=== PATIENT | female | born 1970 | race Hispanic/Latino ===

== ENCOUNTER 2017-01-20 10:36 | Observation (INO) | payer OTHER ==
[2017-01-20 10:39] VITALS: BMI 19.5
--- NOTE | 2017-01-20 12:02 | RAD ---
HISTORY: palpiations COMPARISON: No prior. TECHNIQUE: Chest PA and lateral FINDINGS: LUNGS: Pulmonary hyperinflation suggestive of COPD/ emphysema. Please correlate. No infiltrate. PLEURA: No significant pleural effusion identified. No pneumothorax apparent. CARDIOVASCULAR: Narrow cardiac silhouette, may be related to pulmonary hyperinflation. OSSEOUS STRUCTURES: No significant abnormalities. VISUALIZED UPPER ABDOMEN: Normal. OTHER FINDINGS: None. IMPRESSION: Pulmonary hyperinflation suggestive of emphysema. No acute infiltrate.
[2017-01-20 13:13] LABS: BASO % 1.2 % (0.0-2.0); EOS % 0.3 % (0.0-4.0); HEMATOCRIT 42.1 % (34.0-47.0); LYMPH # 1.4 K/uL (1.0-4.3); LYMPH % 33.9 % (20.0-40.0); MEAN CELL VOLUME 88.2 fl (81.0-99.0); MEAN CORPUSCULAR HEMOGLOBIN 29.1 pg (27.0-31.0); MEAN PLATELET VOLUME 9.5 fl (7.2-11.7); MONO # 0.3 K/uL (0.0-0.8); MONO % 8.6 % (0.0-10.0); NEUT # 2.2 K/uL (1.8-7.0); NRBC % 0.2 % (0.0-0.0); RED CELL DISTRIBUTION WIDTH 14.3 % (11.5-14.5)
[2017-01-20 13:21] LABS: ALB/GLOB RATIO 1.7 (1.0-2.1); ALKALINE PHOSPHATASE 75 U/L (38-126); ALT/SGPT 24 U/L (9-52); AST/SGOT 30 U/L (14-36); BLOOD UREA NITROGEN 12 mg/dl (7-17); CALCIUM 9.1 mg/dL (8.4-10.2); CARBON DIOXIDE 24 mmol/L (22-30); CHLORIDE 108 mmol/L (98-107); GFR AFRICAN-AMERICAN > 60; GLUCOSE,RANDOM 84 mg/dL (65-105); POTASSIUM 4.2 MMOL/L (3.6-5.0); SODIUM 142 mmol/l (132-148); TOTAL PROTEIN 7.3 G/DL (6.3-8.2)
[2017-01-20] MEDS ORDERED: Albuterol 0.083% Inhal Sol (2.5 mg/3 mL) UD INH ONE (13:48)
[2017-01-20] MEDS ORDERED: Albuterol 0.083% Inhal Sol (2.5 mg/3 mL) UD ONE (14:04)
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
[2017-01-20 17:35] LABS: T4 8.63 ug/dl (5.5-11.0)
--- NOTE | 2017-01-20 17:42 | CARD ---
APPROVED REPORT EKG Measurement Heart [id number] ID [id number] <Conclusion> Normal sinus rhythm with sinus arrhythmia Nonspecific ST abnormality Abnormal ECG
[2017-01-20 17:49] LABS: THYROID STIMULATING HORMONE 1.25 mIU/ML (0.46-4.68)
[2017-01-21 05:18] VITALS: TEMP 98.1; O2SAT 99
--- NOTE | 2017-01-21 08:00 | CP.PCM.CON ---
History of Present Illness - History of Present Illness History of Present Illness: 46 y/o w/f admitted with palpitations She has had this for 2 days fells like a rapid heart beat Has had palpitations x years occur daily lasts seconds EP studies 2012 showed RV Pvc's not sustainable 12/23/16 Echo: normal good LV function EF: 65 - 70% PMH: Anxiety Meds: Xanax Klonipin Troponin: neg EKG: normal Past Patient History - Past Medical History & Family History Past Medical History?: Yes - Past Social History Smoking Status: Former Smoker - CARDIAC Hx Cardiac Disorders: Yes Hx Cardia Arrhythmia: Yes - MUSCULOSKELETAL/RHEUMATOLOGICAL Hx Falls: No - PSYCHIATRIC Hx Anxiety: Yes Hx Substance Use: No - SURGICAL HISTORY Hx Cardiac Catheterization: Yes (4 years ago) Other/Comment: facial reconstructive surgery - ANESTHESIA Hx Anesthesia: Yes Hx Anesthesia Reactions: No Meds Home Medications: Home Medication List Medication Instructions Recorded Confirmed Type Escitalopram [Lexapro] 10 mg PO DAILY #30 tab 01/21/17 Rx Metoprolol Tartrate [Lopressor] 12.5 mg PO Q12 #30 tab 01/21/17 Rx Allergies/Adverse Reactions: Allergies Allergy/AdvReac Type Severity Reaction Status Date / Time clindamycin Allergy Mild RASH Verified 01/20/17 10:48 - Medications Medications: Current Medications Acetaminophen (Tylenol 325mg Tab) 650 mg PO Q6 PRN PRN Reason: Headache Alprazolam (Xanax) 0.5 mg PO BID SUMI Enoxaparin Sodium (Lovenox) 40 mg SC DAILY SUMI PRN Reason: Protocol Home Med (Triazolam [Triazolam]) 0.5 mg PO HS SUMI Physical Exam - Constitutional Appears: Well - Head Exam Head Exam: NORMAL INSPECTION - Eye Exam Eye Exam: Normal appearance Pupil Exam: NORMAL ACCOMODATION - ENT Exam ENT Exam: Normal Exam - Neck Exam Neck exam: Positive for: Full Rom - Respiratory Exam Respiratory Exam: Clear to Auscultation Bilateral, NORMAL BREATHING PATTERN - Cardiovascular Exam Cardiovascular Exam: REGULAR RHYTHM - GI/Abdominal Exam GI & Abdominal Exam: Normal Bowel Sounds Results - Vital Signs Recent Vital Signs: Last Vital Signs Temp 98.1 F 01/21/17 05:17 Pulse 82 01/21/17 05:17 Resp 20 01/21/17 05:17 BP 102/68 01/21/17 05:17 Pulse Ox 99 01/21/17 05:17 - Labs Result Diagrams: 01/20/17 13:00 01/20/17 13:00 Labs: Laboratory Results - last 24 hr 01/20/17 01/20/17 01/21/17 16:50 22:27 06:41 Troponin I < 0.0120 < 0.0120 Thyroxine (T4) 8.63 TSH 3rd Generation 1.25 Assessment & Plan (1) Palpitations Assessment and Plan: Spoke with the patient at length explaining her palpitations Gave her the results of her EKG's / Lab / Echo She can be discharged to f/u with me in 1 month I have given her a Rx for Metoprolol succinate 25mg Daily Status: Acute
[2017-01-21 08:14] VITALS: BP 102/62; PULSE 85; RESP 18
[2017-01-21] MEDS ORDERED: Enoxaparin 40 mg Syringe SC SCH (09:00)
[2017-01-21 10:47] LABS: THYROID STIMULATING HORMONE 3.39 mIU/ML (0.46-4.68)
--- NOTE | 2017-01-21 12:49 | CP.PCM.HP ---
History of Present Illness - History of Present Illness History of Present Illness: 46 year old female with a history of anxiety presented to ED with 2 day history of palpitations/sensation of skipped beats that was worsening. Patient states occasionally felt these symptoms though would resolve. Patient has been seen by Dr. Resendiz (Head Teller) in the past where EKG/Echo have been done but never a holter monitor. Patient states she would not be surprised if this was the result of anxiety. Patient takes 0.5mg Xanax BID (though prescribed for qid) . Patient never been on SSRI in the past. Patient was seen and examined with attending. Patient states symptoms have now resolved. No chest pain, sob, abdominal pain, fever, chills, recent travel, leg pain, or change in medications. No other complaints at this time. Present on Admission - Present on Admission Any Indicators Present on Admission: No Review of Systems - Review of Systems All systems: reviewed and no additional remarkable complaints except (mentioned in HPI) Past Patient History - Past Medical History & Family History Past Medical History?: Yes - Past Social History Smoking Status: Former Smoker - CARDIAC Hx Cardiac Disorders: Yes Hx Cardia Arrhythmia: Yes - MUSCULOSKELETAL/RHEUMATOLOGICAL Hx Falls: No - PSYCHIATRIC Hx Anxiety: Yes Hx Substance Use: No - SURGICAL HISTORY Hx Cardiac Catheterization: Yes (4 years ago) Other/Comment: facial reconstructive surgery - ANESTHESIA Hx Anesthesia: Yes Hx Anesthesia Reactions: No Meds Home Medications: Home Medication List Medication Instructions Recorded Confirmed Type Escitalopram [Lexapro] 10 mg PO DAILY #30 tab 01/21/17 Rx Metoprolol Tartrate [Lopressor] 12.5 mg PO Q12 #30 tab 01/21/17 Rx Allergies/Adverse Reactions: Allergies Allergy/AdvReac Type Severity Reaction Status Date / Time clindamycin Allergy Mild RASH Verified 01/20/17 10:48 Physical Exam - Constitutional Appears: Well, Non-toxic, No Acute Distress - Head Exam Head Exam: ATRAUMATIC, NORMAL INSPECTION, NORMOCEPHALIC - Eye Exam Eye Exam: EOMI, Normal appearance, PERRL - Neck Exam Neck exam: Positive for: Normal Inspection - Respiratory Exam Respiratory Exam: Clear to Auscultation Bilateral, NORMAL BREATHING PATTERN - Cardiovascular Exam Cardiovascular Exam: REGULAR RHYTHM, RRR, +S1, +S2. absent: Systolic Murmur - GI/Abdominal Exam GI & Abdominal Exam: Normal Bowel Sounds, Soft. absent: Tenderness - Extremities Exam Extremities exam: Positive for: normal inspection - Back Exam Back exam: NORMAL INSPECTION - Neurological Exam Neurological exam: Alert, Oriented x3 - Psychiatric Exam Psychiatric exam: Normal Affect, Normal Mood - Skin Skin Exam: Dry, Intact, Normal Color, Warm Results - Vital Signs Recent Vital Signs: Last Vital Signs Temp 98.1 F 01/21/17 08:00 Pulse 85 01/21/17 11:11 Resp 18 01/21/17 08:00 BP 102/62 01/21/17 11:11 Pulse Ox 99 01/21/17 08:00 - Labs Result Diagrams: 01/20/17 13:00 01/20/17 13:00 Labs: Laboratory Results - last 24 hr 01/20/17 01/20/17 01/21/17 16:50 22:27 06:41 Troponin I < 0.0120 < 0.0120 Thyroxine (T4) 8.63 TSH 3rd Generation 1.25 3.39 Assessment & Plan (1) Palpitations Assessment and Plan: No chest pain/palpitations at this time. EKG normal Monitored on telemetry Troponin x 3 negative Possibly 2ndary to anxiety Cardiology consulted, appreciate recommendations. Status: Acute (2) Anxiety Assessment and Plan: Encouraged tapering of Xanax and starting SSRI for more maintenance therapy. Counseled on the r/a/b of SSRI including time for treatment response, increased suicidal risk in first weeks, and the need to taper off medications and not to abruptly stop. Patient verbalized understanding and would like to start treatment at this time. ED precautions discussed. Patient refused to be seen by psychiatrist Status: Acute
[2017-01-21] MEDS ORDERED: TRIAZOLAM 0.5 MG PO SCH (22:00)
--- NOTE | 2017-01-23 09:25 | CARD ---
APPROVED REPORT EKG Measurement Heart [id number] <Conclusion> Sinus tachycardia Possible Left atrial enlargement Nonspecific ST abnormality Abnormal ECG
== END 2017-01-21 11:55 | disposition home or self-care (01) ==
LOC: H.ER 10:36 → H.ERHOLD 16:26 → H.TEL 19:05
PROVIDERS: ADMIT Internal Medicine; ATTEND Internal Medicine
DX: R00.2 Palpitations (principal); F41.9 Anxiety disorder, unspecified; I11.0 Hypertensive heart disease with heart failure; I50.9 Heart failure, unspecified; I49.3 Ventricular premature depolarization; Z79.899 Other long term (current) drug therapy; Z87.891 Personal history of nicotine dependence; Z88.1 Allergy status to other antibiotic agents; J44.9 Chronic obstructive pulmonary disease, unspecified

== ENCOUNTER 2018-07-06 17:26 | Emergency (ER) | payer BC, OTHER ==
[2018-07-06 17:26] VITALS: BMI 19.5
[2018-07-06 17:32] VITALS: O2SAT 100
--- NOTE | 2018-07-06 18:28 | ED PDOC ---
HPI: General Adult Time Seen by Provider: 07/06/18 18:11 Chief Complaint (Nursing): Lower Extremity Problem/Injury Chief Complaint (Provider): Palpitations and LE swelling History Per: Patient History/Exam Limitations: no limitations Onset/Duration Of Symptoms: Days Have you had recent travel within the past 21 days to any of the following countries: [place], [place], [place] or [place]?: No Current Symptoms Are (Timing): Better Additional Complaint(s): 47yo F with PMD of PVC/arrhythmia, CHF presents with three days of BL foot and ankle swelling. Pt states this afternoon the swelling went down but her daughter encouraged her to come in for evaluation. Denies chest pain, SOB, fever, injury, or other complaints. PMD: Je Past Medical History Vital Signs: Last Vital Signs Temp 98.0 F 07/06/18 17:29 Pulse 115 H 07/06/18 17:29 Resp 16 07/06/18 17:29 BP 143/88 07/06/18 17:29 Pulse Ox 100 07/06/18 17:29 - Medical History PMH: Anxiety, Cardia Arrhythmia (unknown), CHF (no meds) - Family History Family History: States: Unknown Family Hx - Immunization History Hx Tetanus Toxoid Vaccination: Yes Hx Influenza Vaccination: Yes Hx Pneumococcal Vaccination: No - Home Medications Home Medications: Ambulatory Orders Medication Instructions Recorded Alprazolam [Xanax] 0.5 mg PO BID 01/20/17 Triazolam 0.5 mg PO HS 01/20/17 Escitalopram [Lexapro] 10 mg PO DAILY #30 tab 01/21/17 Metoprolol Tartrate [Lopressor] 12.5 mg PO Q12 #30 tab 01/21/17 - Allergies Allergies/Adverse Reactions: Allergies Allergy/AdvReac Type Severity Reaction Status Date / Time clindamycin Allergy Mild RASH Verified 07/06/18 17:29 Review of Systems Constitutional: Negative for: Fever, Chills, Sweats Cardiovascular: Positive for: Palpitations. Negative for: Chest Pain Respiratory: Negative for: Cough, Shortness of Breath Gastrointestinal: Negative for: Nausea, Vomiting, Abdominal Pain Genitourinary Female: Positive for: Other (BL leg swelling) Musculoskeletal: Positive for: Other Skin: Negative for: Rash, Lesions, Bruising Neurological: Negative for: Weakness, Numbness, Confusion, Headache, Dizziness Physical Exam - Physical Exam Appears: Positive for: Well, Non-toxic, No Acute Distress Head Exam: Positive for: ATRAUMATIC, NORMAL INSPECTION Skin: Positive for: Normal Color, Warm, Dry Eye Exam: Positive for: Normal appearance, EOMI, PERRL Cardiovascular/Chest: Positive for: Regular Rate, Rhythm, Edema (BL foot and ankle). Negative for: Murmur, Friction Rub Respiratory: Positive for: Normal Breath Sounds Pulses-Dorsalis Pedis (L): 2+ Pulses-Dorsalis Pedis (R): 2+ - Laboratory Results Result Diagrams: 07/06/18 18:37 07/06/18 18:37 - ECG O2 Sat by Pulse Oximetry: 100 Medical Decision Making Medical Decision Makin yo F with H/o arrhythmia with palpitations. Work up for CHF/fluid overload -EKG -CXR -Labs -Tylenol for pain reassess pt 20:12 US duplex of LE FINDINGS: DEEP VEINS: The common femoral, superficial femoral, and popliteal veins are echolucent and compressible. There is normal color Doppler flow throughout. The visualized calf veins appear patent. SUPERFICIAL VEINS: The visualized greater saphenous vein is patent. SOFT TISSUES: No popliteal fossa cyst or other abnormalities. IMPRESSION: No deep venous thrombosis evident on bilateral lower extremity examination. Disposition - Clinical Impression Clinical Impression: Leg swelling - Disposition Disposition Time: 22:08 Condition: IMPROVED Additional Instructions: Follow up with primary medical doctor for further work up. All labs and imaging are normal today. Return to the emergency department if symptoms worsen. Forms: nCino (Greek) Print Language: SLOVAK
[2018-07-06 18:40] LABS: BASO % 0.7 % (0.0-2.0); EOS # 0.1 K/uL (0.0-0.7); LYMPH # 1.3 K/uL (1.0-4.3); MEAN CORPUSCULAR HEMOGLOBIN 27.5 pg (27.0-31.0); MEAN CORPUSCULAR HGB CONC 32.4 g/dL (33.0-37.0); MEAN PLATELET VOLUME 8.7 fl (7.2-11.7); MONO # 0.8 K/uL (0.0-0.8); MONO % 12.4 % (0.0-10.0); NEUT # 4.3 K/uL (1.8-7.0); NEUT % 65.9 % (50.0-75.0); RBC 3.99 Mil/uL (3.80-5.20); RED CELL DISTRIBUTION WIDTH 15.7 % (11.5-14.5); WHITE BLOOD COUNT 6.5 K/uL (4.8-10.8)
--- NOTE | 2018-07-06 18:48 | RAD ---
Date of service: 07/06/2018 HISTORY: palpitations and edema COMPARISON: 01/20/2017 FINDINGS: LUNGS: The lungs are hyperinflated and there is peribronchial thickening with chronic changes in both lungs. No focal consolidation. PLEURA: No pleural effusions or pneumothorax. CARDIOVASCULAR: The heart is normal in size. No aortic atherosclerotic calcification present. OSSEOUS STRUCTURES: Within normal limits for the patient's age. VISUALIZED UPPER ABDOMEN: Normal. OTHER FINDINGS: None. IMPRESSION: No active pulmonary disease. COPD.
[2018-07-06 18:50] LABS: ALB/GLOB RATIO 1.5 (1.0-2.1); ALT/SGPT 42 U/L (9-52); AST/SGOT 25 U/L (14-36); BLOOD UREA NITROGEN 12 mg/dl (7-17); CALCIUM 8.9 mg/dL (8.4-10.2); GFR NON-AFRICAN AMERICAN > 60
[2018-07-06 19:01] LABS: B-TYPE NATRIURETIC PEPTIDE 111 pg/ml (0-450)
[2018-07-06 22:01] VITALS: BP 133/72; PULSE 93; RESP 14; TEMP 98.1
--- NOTE | 2018-07-07 07:56 | CARD ---
APPROVED REPORT Date of service: 07/06/2018 EKG Measurement Heart [id number] [place] [id number] <Conclusion> Normal sinus rhythm Normal ECG
--- NOTE | 2018-07-07 10:21 | US ---
Date of service: 07/06/2018 PROCEDURE: Bilateral lower extremity venous duplex Doppler. HISTORY: BL leg swelling with palpitations COMPARISON: None available. TECHNIQUE: Bilateral common femoral, superficial femoral, popliteal and posterior tibial veins were evaluated. Flow was assessed with color Doppler, compressibility, assessment of phasic flow and augmentation response. FINDINGS: COMMON FEMORAL VEIN: Right CFV: Unremarkable. Left CFV: Unremarkable. SUPERFICIAL FEMORAL VEIN: Right SFV: Unremarkable. Left SFV: Unremarkable. POPLITEAL VEIN: Right Popliteal: Unremarkable. Left Popliteal: Unremarkable. POSTERIOR TIBIAL VEIN: Right PTV: Unremarkable. Left PTV: Unremarkable. OTHER FINDINGS: None. IMPRESSION: No evidence of deep venous thrombosis. A preliminary report was provided by [employer].
== END 2018-07-06 22:00 | disposition home or self-care (01) ==
LOC: H.ER 17:26
DX: R00.2 Palpitations (principal); R60.0 Localized edema; I50.9 Heart failure, unspecified